=== PATIENT | female | born 1955 | race Two or more races ===

== ENCOUNTER → 2024-02-24 | Outpatient (CLI) | payer OTHER, MEDICAID, SELFPAY ==
--- NOTE | 2024-02-24 10:30 | XR_ITS ---
Examination: Screening digital mammography, bilateral Computer aided detection 3-D breast Tomosynthesis, bilateral Date and time of exam: February 24, 2024 1017 hours Compared to mammograms dating to June 26, 2016 Indication: Screening Technique: Nonmagnified MLO, CC views of the breasts to been obtained, reconstructed from 3-D Tomosynthesis images. R2 computer aided detection program utilized for evaluation of suspicious masses and/or abnormal calcifications. 3-D Tomosynthesis images obtained. Findings: The breasts are heterogeneously dense, which may obscure small masses 10 mm nodule slightly outer upper right breast indistinct margins 12 mm nodule upper left breast Impression: BI-RADS Category 0: Incomplete: Need additional imaging evaluation 10 mm nodule slightly outer upper right breast indistinct margins, recommend follow-up spot tomographic views 12 mm nodule upper left breast, recommend follow-up spot tomographic views Recommend follow-up bilateral breast sonography to complete the workup
== END | disposition home or self-care (01) ==
LOC: CDIM 10:08
PROVIDERS: Referring Provider Nurse Practitioner Family; Visit Provider Nurse Practitioner Family
DX: Z12.31 Encounter for screening mammogram for malignant neoplasm of breast (principal); R92.8 Other abnormal and inconclusive findings on diagnostic imaging of breast; N63.11 Unspecified lump in the right breast, upper outer quadrant; N63.10 Unspecified lump in the right breast, unspecified quadrant
CPT/HCPCS: 77063; 77067

== ENCOUNTER → 2024-02-29 | Outpatient (CLI) | payer OTHER, MEDICAID, SELFPAY ==
[2024-02-29 08:03] LABS: Collection Type, Urine Clean Catch
[2024-02-29 08:31] LABS: Basophils # (Auto) 0.1 Thou/mm3 (0.0-0.2); Basophils % (Auto) 1 % (0-2.5); Eosinophils # (Auto) 0.3 Thou/mm3 (0.0-0.5); Eosinophils % (Auto) 4 % (0-10); Hematocrit 40.7 % (36.0-46.0); Hemoglobin 13.6 g/dL (12.0-16.0); Immature Granulocytes % (Auto) 0 % (0-0); Immature Granulocytes Auto 0.01 Thou/mm3 (0.00-0.00); Lymphocytes # (Auto) 2.4 Thou/mm3 (1.0-4.8); Lymphocytes % (Auto) 33 % (10-50); Mean Corpuscular HGB Conc 33.4 g/dl (31.0-37.0); Mean Corpuscular Hemoglobin 29.7 pg (25.0-35.0); Mean Corpuscular Volume 89 fL (80-100); Monocytes # (Auto) 0.5 Thou/mm3 (0.0-0.8); Monocytes % (Auto) 8 % (0-12); Neutrophils % (Auto) 55 % (37-80); Nucleated Red Blood Cell % 0 /100 WBC (0); Platelet Count 315 Thou/mm3 (140-440); RDW Standard Deviation 44.3 fL (36.4-46.3); Red Blood Count 4.58 Miln/mm3 (4.00-5.20); White Blood Count 7.2 Thou/mm3 (3.6-11.0)
[2024-02-29 08:35] LABS: Bilirubin,Urine Negative (Negative); Blood,Urine Negative (Negative); Clarity,Urine Clear (Clear/Hazy); Color,Urine Lt-Yellow (Lt Yel-Yel); Culture Indicated,Urine Not Indicated; Glucose, Urine Negative (Negative); Ketones,Urine Negative (Negative); Leukocyte Esterase,Urine Positive (Negative); Nitrite,Urine Negative (Negative); PH,Urine 6.5 (5.0-7.0); Protein,Urine Negative (Neg - Trace); RBC,Urine 2 /hpf (0-3); Specific Gravity,Urine 1.013 (1.001-1.035); Squamous Epithelial Cell,Urine 1 /hpf (0-5); Urobilinogen,Urine Negative mg/dL (0.0-1.0); WBC,Urine 1 /hpf (0-5)
[2024-02-29 08:46] LABS: Vitamin B12 616 pg/mL (211-911)
[2024-02-29 08:53] LABS: Alanine Aminotransferase 18 U/L (10-49); Albumin, Serum 4.3 gm/dL (3.4-4.8); Alkaline Phosphatase 109 U/L (46-116); Anion Gap 9 (7-16); Aspartate Amino Transferase < 8 U/L (0-34); BUN/Creatinine Ratio 12 Ratio (12-20); Bilirubin,Total 0.5 mg/dL (0.3-1.2); Blood Urea Nitrogen 11 mg/dL (9-23); Carbon Dioxide 25.9 mMol/L (20.0-31.0); Cardiac Risk Estimate 3.3 RATIO (3.7-5.6); Chloride 106 mMol/L (98-107); Cholesterol 184 mg/dL (132-200); Creatinine (Component) 0.9 mg/dL (0.6-1.3); Globulin 2.2 gm/dL (2.3-3.5); Glucose 98 mg/dL (74-106); HDL Cholesterol 56 mg/dL (40-60); LDL Cholesterol,Calculated 103 mg/dL (0-130); Osmolality,Calculated 280 (275-295); Potassium 4.4 mMol/L (3.4-5.1); Sodium 141 mMol/L (136-145); Total Protein 6.5 gm/dL (5.7-8.2); Triglycerides 126 mg/dL (30-150); eGFR > 60 See Note
[2024-02-29 08:56] LABS: Glucose Estimated Average 120 mg/dL (80-131); Hemoglobin A1C 5.8 % Hgb (4.8-6.0)
== END | disposition home or self-care (01) ==
PROVIDERS: PCP Family Medicine; Referring Provider Nurse Practitioner Family; Visit Provider Nurse Practitioner Family
DX: Z00.00 Encounter for general adult medical examination without abnormal findings (principal)
CPT/HCPCS: 36415; 80053; 80061; 81001; 82306; 82607; 83036; 84443; 85025

== ENCOUNTER → 2024-03-15 | Outpatient (CLI) | payer OTHER, MEDICAID, SELFPAY ==
--- NOTE | 2024-03-15 08:00 | XR_ITS ---
Examination: Diagnostic digital mammography, bilateral Computer aided detection 3-D breast Tomosynthesis, bilateral Date and time of exam: March 15, 2024 0731 hours INDICATIONS: Mammogram February 24, 2024 10 mm nodule upper outer right breast, 12 mm nodule upper inner left breast Technique: Nonmagnified MLO, CC views of the breasts to been obtained, reconstructed from 3-D Tomosynthesis images. R2 computer aided detection program utilized for evaluation of suspicious masses and/or abnormal calcifications. 3-D Tomosynthesis images obtained. Findings: The breasts are heterogeneously dense, which may obscure small masses No suspicious masses are confirmed on the spot compression views Impression: BI-RADS Category 2: Benign findings Return to yearly follow-up mammography Please see the bilateral breast sonogram report today indicating 6 month bilateral breast sonography follow-up.
--- NOTE | 2024-03-15 08:45 | XR_ITS ---
Examination: Breast ultrasound complete, bilateral Date and time of exam: March 15, 2024 0750 hours INDICATIONS: Mammogram February 24, 2024 10 mm nodule upper outer right breast indistinct margins, 12 mm nodule upper outer left breast Technique: Real-time grayscale ultrasonographic imaging bilateral breasts, including all 4 quadrants as well as nipple retroareolar and axillary regions. Findings: Sonographic images right breast 12:00 cyst 4 x 4 millimeter 2:00 cyst 8 x 7 mm 3.5 cm axillary lymph node Sonographic images left breast 3:00 retroareolar lymph node 9 x 9 mm 5:00 cyst 7 x 7 mm 9:00 lymph node 6 x 6 mm 3.5 cm axillary lymph node Dilated ducts retroareolar IMPRESSION: BI-RADS Category 3: Probably benign findings. Recommend 1 additional 6 month bilateral breast sonography follow-up to document stability of nodules described above
== END | disposition home or self-care (01) ==
LOC: CDIM 07:19
PROVIDERS: PCP Family Medicine; Referring Provider Family Medicine; Visit Provider Family Medicine
DX: R92.323 Mammographic fibroglandular density, bilateral breasts (principal); N60.01 Solitary cyst of right breast; N60.02 Solitary cyst of left breast
CPT/HCPCS: 76641; 77062; 77066; G0279

== ENCOUNTER → 2024-04-28 | Outpatient (CLI) | payer MEDICARE, MEDICAID, SELFPAY ==
--- NOTE | 2024-04-28 | XR_ITS ---
Examination: Hand, left 3 views Technique: Hand AP, oblique, lateral 3 views Date and time of exam: April 28, 2024 0754 hours INDICATIONS: Injury to the left hand and wrist 3 months ago FINDINGS: Moderate osteopenia Advanced osteoarthritis first carpometacarpal joint No acute fracture No foreign body IMPRESSION: Advanced osteoarthritis first carpometacarpal joint No acute fracture
--- NOTE | 2024-04-28 | XR_ITS ---
Examination: Wrist, left 3 views Technique: Wrist AP, oblique, lateral 3 views Date and time of exam: April 28, 2024 0754 hours Comparison February 04, 2024 INDICATIONS: Injury to the wrist 3 months ago, wrist pain. FINDINGS: Prominent osteopenia No acute fracture Advanced osteoarthritis first carpometacarpal joint IMPRESSION: Advanced osteoarthritis first carpometacarpal joint. No acute fracture
== END | disposition home or self-care (01) ==
LOC: CDIM 07:39
DX: M18.12 Unilateral primary osteoarthritis of first carpometacarpal joint, left hand (principal); S69.92XA Unspecified injury of left wrist, hand and finger(s), initial encounter; X58.XXXA Exposure to other specified factors, initial encounter
CPT/HCPCS: 73110; 73130

== ENCOUNTER 2024-06-28 14:00 | Outpatient (RCR) | payer MEDICARE, MEDICAID, SELFPAY ==
--- NOTE | 2024-06-07 14:04 | PTNOTE_ITS ---
PT OP Initial Eval Patient Information Outpatient Physical Therapy Treatment Date: 06/07/24 Visit Reasons: LEFT DISTAL RADIUS FX Medical Diagnosis: S52.57 Treatment Dx #1: L wrist pain Treatment Dx #2: Dec mechanical reliability engineer strength L hand Start of Care: 06/07/24 Date of Onset: 01/13/25 DOI Smoking Status Smoking Status: Never smoker Initial Assessment Subjective: Pt is 68 yr old dominican speaking female s/p ground level fall and L distal radius FX in January. Pt reports pain daily and difficulty moving the thumb. This limits HH chore, lifting and grasping objects tolerance. PMH: HTN, allergies Imaging: in EMR Pt goal: to grasp objects without L hand pain Objective: L wrist AROM: Flexion: 40 deg Extension: full Ulnar deviation: full RD: 10 deg Neo mechanical reliability engineer strength: R: 60 lbs, L: 35 lbs Thumb AROM: Extension: 45 deg Flexion: 35 deg Opposition: can touch all finger tips Assessment: Pt presents with decreased mechanical reliability engineer strength and wrist flexion along with limited thumb flexion ROM s/p distal radius FX. Pt requires skilled therapy to meet goals and has fair rehab potential to meet goals. Short Term and Intermediate Goals 1. Ind with HEP 2. Improved L wrist Flexion to 50 deg 3. Improved mechanical reliability engineer strength to at least 45 lbs on L 4. Pt will grasp drinking glass or mug without dropping Treatment Plan ? 1. Manual therapy ? 2. Therex ? 3. Modalities as indicated, moist heat, ice, estim Frequency and Duration: 1-2x a week for 12 visits Certification Dates: 06/07/24 to 09/07/24 Procedure Charges OP PT Eval Mod Complex 30 minutes: Yes
--- NOTE | 2024-06-14 14:52 | PTNOTE_ITS ---
PT Outpatient Daily Note OP Daily Note Outpatient Physical Therapy Treatment Date: 06/14/24 Visit Reasons: LEFT DISTAL RADIUS FX Subjective: Pt reports L hand and thumb is sore, painful and tender. Objective: Please see flow sheet for ther ex list. Assessment: Pt tolerated interventions with minimal pain. Plan: Assess response to treatment. Length of Time (minutes) of Treatment: 30 Minutes STORE DETECTIVE Service Modifier Method I: Divide the number of min of care provided by the STORE DETECTIVE/AS400 ANALYST by the total min of care provided then multiply by 100. If greater than 11 percent modifier is required. Method II: Divide the total time of care provided to patient by 10 (round to the nearest whole number) and add 1 min. to set the minimum time requirement. If treatment total was 60 min., then 10% of 6 min PT CQ modifier applied: CQ Modifier applied Procedure Charges Therapeutic Exercise 30 minutes: Yes
--- NOTE | 2024-06-21 14:34 | PT.ODAYNRPT ---
PT Outpatient Daily Note OP Daily Note Outpatient Physical Therapy Treatment Date: 06/21/24 Visit Reasons: LEFT DISTAL RADIUS FX Subjective: Pt reports L wrist is doing ok, has been compliant with wrist stretches and feels more flexibility. Objective: Please see flow sheet for ther ex list. Assessment: Progression of interventions completed with muscle fatigue and minimal pain. Plan: Continue with POC. Length of Time (minutes) of Treatment: 30 Minutes Procedure Charges Therapeutic Exercise 30 minutes: Yes
--- NOTE | 2024-06-28 14:35 | PT.ODAYNRPT ---
PT Outpatient Daily Note OP Daily Note Outpatient Physical Therapy Treatment Date: 06/28/24 Visit Reasons: LEFT DISTAL RADIUS FX Subjective: Pt reports hand feels a little better but avoids certain activities at home to not aggravate symptoms. Objective: Please see flow sheet for ther ex list. Assessment: Added functional strengthening completed with some discomfort. Plan: Continue with poC. Length of Time (minutes) of Treatment: 30 Minutes COLLECTOR OF INTERNAL REVENUE Service Modifier Method I: Divide the number of min of care provided by the COLLECTOR OF INTERNAL REVENUE/MORGAN by the total min of care provided then multiply by 100. If greater than 11 percent modifier is required. Method II: Divide the total time of care provided to patient by 10 (round to the nearest whole number) and add 1 min. to set the minimum time requirement. If treatment total was 60 min., then 10% of 6 min PT CQ modifier applied: CQ Modifier applied Procedure Charges Therapeutic Exercise 30 minutes: Yes
== END 2024-07-04 23:59 | disposition home or self-care (01) ==
LOC: CPTX 14:00
PROVIDERS: PCP Surgery; Referring Provider Surgery; Visit Provider Surgery
DX: M25.532 Pain in left wrist (principal); S52.502D Unspecified fracture of the lower end of left radius, subsequent encounter for closed fracture with routine healing; W18.30XD Fall on same level, unspecified, subsequent encounter
CPT/HCPCS: 97110; 97162

== ENCOUNTER 2024-07-21 09:30 | Outpatient (RCR) | payer MEDICARE, MEDICAID, SELFPAY ==
--- NOTE | 2024-07-06 12:45 | PT.ODAYNRPT ---
PT Outpatient Daily Note OP Daily Note Outpatient Physical Therapy Treatment Date: 07/06/24 Subjective: Overall better but the wrist hurts sometimes Objective: See F/S for therex Assessment: Good therex tolerance with low pain in L wrist Plan: Continue per POC Length of Time (minutes) of Treatment: 30 Minutes Procedure Charges Therapeutic Exercise 30 minutes: Yes
--- NOTE | 2024-07-13 10:05 | PTNOTE_ITS ---
PT Outpatient Daily Note OP Daily Note Outpatient Physical Therapy Treatment Date: 07/13/24 Subjective: Pt reports hand is doing a little better. Objective: Please see flow sheet for ther ex list. Assessment: Added functional strengthening and pinching exercise for hand eye coordination, pt tolerated with muscle fatigue but no other complaints. Plan: Continue with pOC. Length of Time (minutes) of Treatment: 30 Minutes INTERACTIVE MEDIA DIRECTOR Service Modifier Method I: Divide the number of min of care provided by the INTERACTIVE MEDIA DIRECTOR/MORGAN by the total min of care provided then multiply by 100. If greater than 11 percent modifier is required. Method II: Divide the total time of care provided to patient by 10 (round to the nearest whole number) and add 1 min. to set the minimum time requirement. If treatment total was 60 min., then 10% of 6 min PT CQ modifier applied: CQ Modifier applied Procedure Charges Therapeutic Exercise 30 minutes: Yes
--- NOTE | 2024-07-21 11:43 | PT.ODAYNRPT ---
PT Outpatient Daily Note OP Daily Note Outpatient Physical Therapy Treatment Date: 07/21/24 Subjective: Overall better but the wrist hurts sometimes and she points to the carpal tunnel and thenar eminence Objective: See F/S for therex Assessment: Good therex tolerance with low pain in L wrist with most gripping therex but the thumb has decreased flexion ROM Plan: Continue per POC Procedure Charges Therapeutic Exercise 30 minutes: Yes
== END 2024-08-03 23:59 | disposition home or self-care (01) ==
LOC: CPTX 09:30
PROVIDERS: PCP Surgery; Referring Provider Surgery; Visit Provider Surgery
DX: M25.532 Pain in left wrist (principal); S52.502D Unspecified fracture of the lower end of left radius, subsequent encounter for closed fracture with routine healing; W18.30XD Fall on same level, unspecified, subsequent encounter
CPT/HCPCS: 97110

== ENCOUNTER → 2024-09-06 | Outpatient (CLI) | payer MEDICARE, MEDICAID, SELFPAY ==
--- NOTE | 2024-09-06 08:45 | XR_ITS ---
Examination: Breast ultrasound complete, bilateral Date and time of exam: September 06, 2024 0850 hours INDICATIONS: Bilateral breast sonography March 15, 2024 breast cystic disease, 3:00 intramammary lymph node left breast Technique: Real-time grayscale ultrasonographic imaging bilateral breasts, including all 4 quadrants as well as nipple retroareolar and axillary regions. Findings: Sonographic images right breast Multiple benign cysts 11:00 nodule 6 x 6 mm circumscribed Retroareolar nodule circumscribed 5 x 5 mm Retroareolar nodule circumscribed 5 x 6 mm Sonographic images left breast 2:00 circumscribed nodule 6 x 6 mm 3:00 cyst 10 x 11 mm 5:00 circumscribed nodule 6 x 7 mm 9:00 circumscribed nodule 5 x 4 mm IMPRESSION: BI-RADS Category 3: Probably benign findings One additional 6 month bilateral breast sonography follow-up is needed to document stability of multiple solid nodules described above
== END | disposition home or self-care (01) ==
PROVIDERS: PCP Family Medicine; Referring Provider Physician Assistant; Visit Provider Physician Assistant
DX: N63.25 Unspecified lump in the left breast, overlapping quadrants (principal); N63.21 Unspecified lump in the left breast, upper outer quadrant; N63.11 Unspecified lump in the right breast, upper outer quadrant; N63.41 Unspecified lump in right breast, subareolar
CPT/HCPCS: 76641

== ENCOUNTER → 2025-02-15 | Outpatient (CLI) | payer MEDICARE, MEDICAID, SELFPAY ==
[2025-02-15 13:05] LABS: Collection Type, Urine Clean Catch
[2025-02-15 13:18] LABS: Basophils # (Auto) 0.0 Thou/mm3 (0.0-0.2); Basophils % (Auto) 1 % (0-2.5); Eosinophils # (Auto) 0.2 Thou/mm3 (0.0-0.5); Eosinophils % (Auto) 3 % (0-10); Hematocrit 40.5 % (36.0-46.0); Hemoglobin 13.4 g/dL (12.0-16.0); Immature Granulocytes Auto 0.02 Thou/mm3 (0.00-0.00); Lymphocytes # (Auto) 1.9 Thou/mm3 (1.0-4.8); Lymphocytes % (Auto) 33 % (10-50); Mean Corpuscular HGB Conc 33.1 g/dl (31.0-37.0); Mean Corpuscular Hemoglobin 30.0 pg (25.0-35.0); Mean Corpuscular Volume 91 fL (80-100); Monocytes # (Auto) 0.5 Thou/mm3 (0.0-0.8); Monocytes % (Auto) 8 % (0-12); Neutrophils # (Auto) 3.3 Thou/mm3 (1.8-7.7); Neutrophils % (Auto) 55 % (37-80); Nucleated Red Blood Cell # 0.00 Thou/mm3 (0.00-0.00); Nucleated Red Blood Cell % 0 /100 WBC (0); Platelet Count 292 Thou/mm3 (140-440); RDW Standard Deviation 44.8 fL (36.4-46.3); Red Blood Count 4.46 Miln/mm3 (4.00-5.20); White Blood Count 6.0 Thou/mm3 (3.6-11.0)
[2025-02-15 13:28] LABS: Bilirubin,Urine Negative (Negative); Blood,Urine Negative (Negative); Clarity,Urine Clear (Clear/Hazy); Color,Urine Lt-Yellow (Lt Yel-Yel); Culture Indicated,Urine Not Indicated; Glucose, Urine Negative (Negative); Ketones,Urine Negative (Negative); Leukocyte Esterase,Urine Negative (Negative); Nitrite,Urine Negative (Negative); PH,Urine 7.0 (5.0-7.0); Protein,Urine Negative (Neg - Trace); RBC,Urine < 1 /hpf (0-3); Specific Gravity,Urine 1.013 (1.001-1.035); Squamous Epithelial Cell,Urine < 1 /hpf (0-5); Urobilinogen,Urine Negative mg/dL (0.0-1.0); WBC,Urine < 1 /hpf (0-5)
[2025-02-15 13:30] LABS: Glucose Estimated Average 126 mg/dL (80-131); Hemoglobin A1C 6.0 % Hgb (4.8-6.0)
[2025-02-15 13:47] LABS: Alanine Aminotransferase 25 U/L (10-49); Albumin, Serum 4.8 gm/dL (3.4-4.8); Albumin/Globulin Ratio 2.2 (1.2-2.2); Alkaline Phosphatase 100 U/L (46-116); Anion Gap 8 (7-16); Aspartate Amino Transferase 22 U/L (0-34); BUN/Creatinine Ratio 13 Ratio (12-20); Bilirubin,Total 0.5 mg/dL (0.3-1.2); Blood Urea Nitrogen 9 mg/dL (9-23); Calcium 9.9 mg/dL (8.3-10.6); Calcium (Corrected) 9.9 mg/dL (8.5-10.1); Carbon Dioxide 27.1 mMol/L (20.0-31.0); Chloride 108 mMol/L (98-107); Creatinine (Component) 0.7 mg/dL (0.6-1.3); Globulin 2.2 gm/dL (2.3-3.5); Glucose 94 mg/dL (74-106); Osmolality,Calculated 283 (275-295); Potassium 4.0 mMol/L (3.4-5.1); Sodium 143 mMol/L (136-145); Thyroid Stimulating Hormone 1.20 uIU/mL (0.55-4.78); Total Protein 7.0 gm/dL (5.7-8.2); eGFR > 60 See Note
[2025-02-15 15:43] LABS: Cardiac Risk Estimate 3.3 RATIO (3.7-5.6); Cholesterol 196 mg/dL (132-200); HDL Cholesterol 59 mg/dL (40-60); LDL Cholesterol,Calculated 111 mg/dL (0-130); Triglycerides 130 mg/dL (30-150)
== END | disposition home or self-care (01) ==
PROVIDERS: PCP Family Medicine; Referring Provider Physician Assistant; Visit Provider Physician Assistant
DX: Z00.01 Encounter for general adult medical examination with abnormal findings (principal); I10 Essential (primary) hypertension
CPT/HCPCS: 36415; 80053; 80061; 81001; 83036; 84443; 85025